=== PATIENT | female | born 1980 | race Caucasian/White ===

== ENCOUNTER 2021-06-03 11:29 | Emergency (ER) | payer OTHER ==
[~2021-06-03] VITALS: Ht 165.1 cm; Wt 76.2 kg
[2021-06-03] MEDS ORDERED: BUPROPION XL300 MG PO (11:39)
[2021-06-03] MEDS ORDERED: PROMETHAZI6.25 MG/5 PO (13:29)
[2021-06-03] MEDS ORDERED: TESSALON PERLE100 MG PO (13:29)
[2021-06-03 13:35] VITALS: BP 130/101
== END 2021-06-03 13:35 | disposition home or self-care (01) ==
LOC: M.ERS 11:29
DX: U07.1 COVID-19 (principal); Z91.030 Bee allergy status